=== PATIENT | male | born 1995 | race Caucasian/White ===

== ENCOUNTER 2025-07-22 11:56 | Emergency (ER) | payer SELFPAY ==
[2025-07-22 12:12] VITALS: BP 126/85; PULSE 71; RESP 16; TEMP 36.9; O2SAT 97
--- NOTE | 2025-07-22 12:13 | ED_ITS ---
HPI - Abdominal Pain General Chief Complaint: Abdominal Pain Stated Complaint: Right Side Pain Time Seen by Provider: 07/22/25 12:20 Source: patient Mode of arrival: ambulatory Limitations: no limitations History of Present Illness HPI narrative: Jack is a 30-year-old male patient presenting to the clinic today with complaints of right lower quadrant abdominal pain x1 day. He reports his symptoms started last night. Rates the pain a 4-5/10. Thought he may be constipated. Took a stool softener. Had a bowel movement this morning but this did not change the pain. Blood in his stool. No history of constipation in the past. No nausea or vomiting associated. Denies any fevers, chills, body aches. Related Data Home Medications ?Medication ?Instructions ?Recorded ?Confirmed ?Last Taken ?Type paroxetine HCl 20 mg tablet mg PO 07/22/25 Unknown Hi story Allergies Allergy/AdvReac Type Severity Reaction Status Date / Time No Known Allergies Allergy Verified 07/22/25 12:13 Review of Systems Review of Systems: Pertinent positives per HPI. Patient denies any fever, chills, rash, headache, visual changes, dizziness, cough, runny nose, sore throat, shortness of breath, chest pain, palpitations, nausea, vomiting, diarrhea, constipation, or any urinary issues. [facility] Family History Family History (Updated 11/13/18 @ 13:41 by DOCTOR UNKNOWN) Mother Family history of mental disorder Social History Social History Smoking status: Never smoker Alcohol intake: current Comments At the time of my signature, I reviewed and agree with the nursing past medical, surgical, social, and family history. There is no relevant family history pertinent to the patient complaint. Exam Narrative: General: Well-developed, well nourished, in no apparent distress. Head: Normocephalic, atraumatic. Cardio: Regular rate and rhythm, s1 and s2 normal, no murmur appreciated. Resp: Clear to auscultation bilaterally, no rhonchi, rales, wheezing or rubs. Abdomen: Soft, pliable, bowel sounds present in all quadrants right lower quadrant tender to palpation, no organomegly, no CVAT tenderness. Course Course Emergency Course: Portions of this record may have been created with voice recognition software. Level of Care: Express Care Visit Vital Signs Vital signs: Vital Signs Temperature 36.9 C 07/22/25 12:12 Pulse Rate 71 07/22/25 12:12 Respiratory Rate 16 07/22/25 12:12 Blood Pressure 126/85 07/22/25 12:12 Pulse Oximetry 97 07/22/25 12:12 Temperature 36.9 C 07/22/25 12:12 Pulse Rate 71 07/22/25 12:12 Respiratory Rate 16 07/22/25 12:12 Blood Pressure 126/85 07/22/25 12:12 Pulse Oximetry 97 07/22/25 12:12 Vital signs reviewed Transfer Transfered to: [place] Transportation: Other (Private car) Transfer rationale: RLQ abdomen pain R/O appy Accepting physician: Rowdy Transfer comments: Private car MDM - Abdominal Pain MDM Narrative Medical decision making narrative: At the time of visit patient is resting comfortably on the exam table. Patient appears to be nontoxic. complaints of right lower quadrant abdominal pain x1 day. He reports his symptoms started last night. Rates the pain a 4-5/10. Thought he may be constipated. Took a stool softener. Had a bowel movement this morning but this did not change the pain. Blood in his stool. No history of constipation in the past. No nausea or vomiting associated. Denies any fevers, chills, body aches. On exam patient has right lower quadrant abdominal tenderness, bowel sounds present all 4 quadrants, soft pliable abdomen, nondistended, no CVAT tenderness, no organomegaly. Plan: Patient is having right lower quadrant abdominal pain. Tenderness to palpation over the right lower quadrant-recommend sending to the ER for further evaluation to rule out appendicitis. Patient agrees to transfer. Patient would like to go to [place] emergency room. Contacted Claire-physician's assistant statistician at [place] [facility] and she accepts patient for transfer. Differential Diagnosis Differential diagnosis: Likely abdominal pain, acute appendicitis, constipation, small bowel obstruction and other (Cholecystitis) Discharge Plan Discharge Clinical Impression: Abdominal pain, acute, right lower quadrant Patient Disposition: Acute Care Hospital Condition: Stable Patient Language: Luxembourgish Prescriptions: No Action paroxetine HCl 20 mg tablet PO Follow-up/Referrals: PHYSICIAN,PLATE COLORER [Primary Care Provider, Internal Medicine] Time of Disposition: 12:25 Quality NIHSS Nursing Documentation ED NIHSS nursing documentation: reviewed/agree
== END 2025-07-22 12:30 | disposition short-term general hospital (02) ==
PROVIDERS: Emergency Provider Nurse Practitioner Family
DX: R10.31 Right lower quadrant pain (principal)
CPT/HCPCS: 99212; G0463

== ENCOUNTER 2025-07-22 13:04 | Emergency (ER) | payer OTHER, SELFPAY ==
--- NOTE | ~2025-07-22 | CT_ITS ---
EXAMINATION: CT abdomen pelvis w con DATE: 07/22/2025 14:45 INDICATION: Right lower quadrant pain TECHNIQUE: Computed tomography (CT) of the abdomen and pelvis was performed with 100 cc Omnipaque 350 intravenous contrast. The dose-length product was 630.07 mGy-cm. Automated exposure control and iterative reconstruction technique were employed. COMPARISON: None. FINDINGS: Lung bases unremarkable. Heart size normal. No significant pleural or pericardial effusion. There is a distal right ureteral stone measuring approximately 4 mm with moderate hydronephrosis. Fatty infiltration of the liver. Gallbladder is distended. Spleen, pancreas, adrenal glands and left ki dney are unremarkable. There is asymmetric right nephrogram which appears delayed, consistent with obstruction. Nonobstructive bowel gas pattern. Normal appendix. No significant vascular abnormality. No lymphadenopathy. No acute osseous abnormality. Small bone island left ilium. IMPRESSION: 1. Obstructing distal right ureteral stone near the UVJ measuring 4 mm with moderate hydronephrosis. Reviewed, dictated and finalized at location [facility]. [facility] IMPRESSION: 1. Obstructing distal right ureteral stone near the UVJ measuring 4 mm with mod erate hydronephrosis.
[2025-07-22 13:10] VITALS: BP 112/71; PULSE 67; RESP 20; TEMP 37.2; O2SAT 100
[2025-07-22 14:42] LABS: Hematocrit 38.9 % (42.0-52.0); Hemoglobin 13.4 g/dL (14.0-18.0); Immature Granulocyte Percent A 0.3 % (0-0.5); Lymphocytes Absolute Auto 0.54 K/mm3 (0.9-3.2); Mean Corpuscular HGB Conc 34.4 g/dl (32-36); Mean Corpuscular Hemoglobin 31.1 pg (26-34); Mean Corpuscular Volume 90.3 fl (80-100); Nucleated Red Blood Cells Absolute Auto 0.000 K/mm3 (0.0-0.012); Nucleated Red Blood Cells Perc 0.0 % (0.0-0.2); Platelet Count Result 250 k/mm3 (150-375); Red Blood Count 4.31 M/mm3 (4.6-6.20); White Blood Count 10.8 K/mm3 (4.5-10.0)
--- NOTE | 2025-07-22 15:27 | ED.ABDPAIN ---
HPI - Abdominal Pain General Chief Complaint: Abdominal Pain <MARTÍN Lombardi Last Filed: 07/22/25 15:37> Stated Complaint: RLQ pain-R/O appendicitis <MARTÍN Lombardi Last Filed: 07/22/25 15:37> Time Seen by Provider: 07/22/25 15:27 <MARTÍN Lombardi Last Filed: 07/22/25 15:37> Focused HPI: Started feeling lower right quadrant abdominal pain last night. Pain continued to today and describes it as dull starting in lower right flank radiating into lower right quadrant. Denies f/chills. GENERAL: Well-appearing, well-nourished, and in no acute distress. HEAD: Normocephalic, atraumatic. CHEST: Clear to auscultation. ?No respiratory distress. HEART: Regular rate and rhythm. ABDOMINAL: Pain not reproducing with palpation. NEURO: ?Alert and oriented x3. Patient screened in triage and initial orders placed.? ?Additional care and disposition to be based upon?diagnostic testing and treatment. <MARTÍN Lombardi Last Filed: 07/22/25 15:37> Focused HPI: Started feeling lower right quadrant abdominal pain last night. Pain continued to today and describes it as dull starting in lower right flank radiating into lower right quadrant. Denies f/chills. GENERAL: Well-appearing, well-nourished, and in no acute distress. HEAD: Normocephalic, atraumatic. CHEST: Clear to auscultation. ?No respiratory distress. HEART: Regular rate and rhythm. ABDOMINAL: Pain not reproducing with palpation. NEURO: ?Alert and oriented x3. Patient screened in triage and initial orders placed.? ?Additional care and disposition to be based upon?diagnostic testing and treatment. <Claire Bell PA-C - Last Filed: 07/22/25 17:20> Source: patient <ROBERTO Garcia Last Filed: 07/22/25 17:20> Mode of arrival: ambulatory <ROBERTO Garcia Last Filed: 07/22/25 17:20> Limitations: no limitations <Claire Bell PA-C - Last Filed: 07/22/25 17:20> History of Present Illness HPI narrative: Agree with above HPI. Did report nausea and vomiting earlier today. Denies dysuria, hematuria. Denies history of similar pain. Was seen at urgent care this morning and sent here for further evaluation. <Claire Bell PA-C - Last Filed: 07/22/25 17:20> Related Data Home Medications: Home Medications ?Medication ?Instructions ?Recorded ?Confirmed ?Last Taken ?Type paroxetine HCl 20 mg tablet mg PO 07/22/25 Unknown History <MARTÍN Lombardi Last Filed: 07/22/25 15:37> Allergies/Adverse Reactions: Allergies Allergy/AdvReac Type Severity Reaction Status Date / Time No Known Allergies Allergy Verified 07/22/25 12:13 <MARTÍN Lombardi Last Filed: 07/22/25 15:37> Review of Systems Review of Systems: All systems reviewed & are unremarkable except as noted in HPI. <Claire Bell PA-C - Last Filed: 07/22/25 17:20> All systems reviewed & are unremarkable except as noted in HPI and below <Claire Bell PA-C - Last Filed: 07/22/25 17:20> [facility] [place] Family History Family History: Family History Mother Family history of mental disorder <MARTÍN Lombardi Last Filed: 07/22/25 15:37> Social History Social History: Social History Alcohol intake: current <MARTÍN Lombardi Filed: 07/22/25 15:37> Exam Narrative: GENERAL: Well appearing, well-nourished, non-toxic, in no acute distress. HEAD: Normocephalic, atraumatic. RESPIRATORY: Airway patent, respirations nonlabored. Clear to auscultation bilaterally, no rales, rhonchi, wheezing. CARDIOVASCULAR: Regular rate and rhythm without murmurs, rubs, or gallops. ABDOMINAL: Soft, mild tenderness palpation right mid to lower /lateral abdomen, nondistended. Normoactive BS. No significant CVA tenderness MUSCULOSKELETAL: Moves all extremities. No gross deformities. SKIN: Warm, dry, normal color. NEURO: A&O X3. Speech clear. Steady gait. No ataxic movements. PSYCHIATRIC: Appropriate mood and affect. Normal interaction. <ROBERTO Garcia Last Filed: 07/22/25 17:20> Course Vital Signs Vital signs: Vital Signs Temperature 98.9 F 07/22/25 13:10 Pulse Rate 67 07/22/25 13:10 Respiratory Rate 20 07/22/25 13:10 Blood Pressure 112/71 07/22/25 13:10 Pulse Oximetry 100 07/22/25 13:10 Oxygen Delivery Room Air 07/22/25 13:10 Temperature 98.9 F 07/22/25 13:10 Pulse Rate 65 07/22/25 15:54 Respiratory Rate 16 07/22/25 15:54 Blood Pressure 121/107 H 07/22/25 15:54 Pulse Oximetry 99 07/22/25 15:54 Oxygen Delivery Room Air 07/22/25 15:54 <MARTÍN Lombardi Last Filed: 07/22/25 15:37> Vital Signs Temperature 98.9 F 07/22/25 13:10 Pulse Rate 67 07/22/25 13:10 Respiratory Rate 20 07/22/25 13:10 Blood Pressure 112/71 07/22/25 13:10 Pulse Oximetry 100 07/22/25 13:10 Oxygen Delivery Room Air 07/22/25 13:10 Temperature 98.9 F 07/22/25 13:10 Pulse Rate 65 07/22/25 15:54 Respiratory Rate 16 07/22/25 15:54 Blood Pressure 121/107 H 07/22/25 15:54 Pulse Oximetry 99 07/22/25 15:54 Oxygen Delivery Room Air 07/22/25 15:54 <ROBERTO Garcia Last Filed: 07/22/25 17:20> MDM - Abdominal Pain MDM Narrative Medical decision making narrative: Patient presented to ED with right-sided lower abdominal pain that began last night, worsening today. Associated with nausea/vomiting. Sent from urgent care. Vital signs stable upon arrival. Patient in no acute distress upon my evaluation. Given pain control. CBC with white blood cell count of 10.8. Stable H&H. CMP unremarkable. Kidney function is stable. Normal LFTs. UA w/ elevated SG, evidence of blood, no signs of infection. CT of the abdomen/pelvis was obtained and showing 4 mm distal right ureteral stone. Moderate hydronephrosis. Discussed lab and imaging findings w/ patient. He denies previous hx of kidney stone. Does endorse frequent energy drink consumption. Patient's pain is controlled at this time. He is stable. Safe for discharge home. Discussed continued management of kidney stone, sent with urine strainer, will refer to Urology for further eval as needed. Given strict return precautions. He agrees with plan. Discharged in stable condition. <Claire Bell PA-C - Last Filed: 07/22/25 17:20> Medical Records Attestation: I reviewed the patient's medical records. <Claire Bell PA-C - Last Filed: 07/22/25 17:20> Lab Data Attestation: I reviewed the patient's lab results. <Claire Bell PA-C - Last Filed: 07/22/25 17:20> Result diagrams: 07/22/25 14:35 07/22/25 16:06 <MARTÍN Lmobardi Last Filed: 07/22/25 15:37> Labs: Lab Results 07/22/25 07/22/25 Range/Units 14:35 16:06 WBC 10.8 H (4.5-10.0) K/mm3 RBC 4.31 L (4.6-6.20) M/mm3 Hgb 13.4 L (14.0-18.0) g/dL Hct 38.9 L (42.0-52.0) % MCV 90.3 (80-100) fl MCH 31.1 (26-34) pg MCHC 34.4 (32-36) g/dl RDW 11.8 (11.5-14.5) % Plt Count 250 (150-375) k/mm3 MPV 9.1 (7.4-10.4) fl Immature Gran % (Auto) 0.3 (0-0.5) % Neut % (Auto) 91.1 H (45.5-73.1) % Lymph % (Auto) 5.0 L (18.3-44.2) % [place] % (Auto) 3.2 (2.6-8.5) % Eos % (Auto) 0.2 (0-4.4) % Baso % (Auto) 0.2 (0.2-1.2) % Lymph # (Auto) 0.54 L (0.9-3.2) K/mm3 [place] # (Auto) 0.4 (0.1-0.6) K/mm3 Eos # (Auto) 0.0 (0-0.3) K/mm3 Baso # (Auto) 0.0 (0.0-0.1) K/mm3 Abs Immat Gran (auto) 0.03 (0.00-0.031) K/mm3 Absolute Neuts (auto) 9.8 H (1.3-6.7) K/mm3 Absolute Nucleated RBC 0.000 (0.0-0.012) K/mm3 Nucleated RBC % 0.0 (0.0-0.2) % Sodium 138 (137-145) mmol/L Potassium 4.2 (3.4-5.0) mmol/L Chloride 101 (98-107) mmol/L Carbon Dioxide 28 (22-30) mmol/L Anion Gap 9 (4-12) mmol/L BUN 10 (9-20) mg/dL Creatinine 1.15 (0.7-1.3) mg/dL Estim Creat Clear Calc 88 ml/min Estimated GFR > 60 (59 - ) Glucose 95 (65-110) mg/dL Calcium 9.0 (8.4-10.2) mg/dL Total Bilirubin 0.4 (0.2-1.3) mg/dL AST 23 (17-59) U/L ALT 20 (6-50) U/L Alkaline Phosphatase 71 (38-126) U/L Total Protein 6.7 (6.3-8.2) g/dL Albumin 4.5 (3.5-5.1) g/dL Urine Color Yellow (Yellow) Urine Appearance Clear (Clear) Urine pH 8.5 (5.0-9.0) Ur Specific [place] > 1.045 H (1.001-1.035) Urine Protein Negative (Negative) mg/dL Urine Glucose (UA) Negative (Negative) mg/dL Urine Ketones Negative (Negative) mg/dL Ur Blood (Man) 1+ H (Negative) Urine Nitrate Negative (Negative) Urine Bilirubin Negative (Negative) Urine Urobilinogen 0.2 (<2.0) mg/dL Leukocyte Esterase Rfl Negative (Negative) JACQUELINE/UL Urine RBC 21-50 H (0-2) /hpf Urine WBC 0-5 (0-3) /hpf Ur Squamous Epith Cells None seen (Few) /hpf Urine Bacteria None seen /hpf Urine Casts 0-2 <MARTÍN Lombardi - Last Filed: 07/22/25 15:37> Lab Results 07/22/25 07/22/25 Range/Units 14:35 16:06 WBC 10.8 H (4.5-10.0) K/mm3 RBC 4.31 L (4.6-6.20) M/mm3 Hgb 13.4 L (14.0-18.0) g/dL Hct 38.9 L (42.0-52.0) % MCV 90.3 (80-100) fl MCH 31.1 (26-34) pg MCHC 34.4 (32-36) g/dl RDW 11.8 (11.5-14.5) % Plt Count 250 (150-375) k/mm3 MPV 9.1 (7.4-10.4) fl Immature Gran % (Auto) 0.3 (0-0.5) % Neut % (Auto) 91.1 H (45.5-73.1) % Lymph % (Auto) 5.0 L (18.3-44.2) % [place] % (Auto) 3.2 (2.6-8.5) % Eos % (Auto) 0.2 (0-4.4) % Baso % (Auto) 0.2 (0.2-1.2) % Lymph # (Auto) 0.54 L (0.9-3.2) K/mm3 [place] # (Auto) 0.4 (0.1-0.6) K/mm3 Eos # (Auto) 0.0 (0-0.3) K/mm3 Baso # (Auto) 0.0 (0.0-0.1) K/mm3 Abs Immat Gran (auto) 0.03 (0.00-0.031) K/mm3 Absolute Neuts (auto) 9.8 H (1.3-6.7) K/mm3 Absolute Nucleated RBC 0.000 (0.0-0.012) K/mm3 Nucleated RBC % 0.0 (0.0-0.2) % Sodium 138 (137-145) mmol/L Potassium 4.2 (3.4-5.0) mmol/L Chloride 101 (98-107) mmol/L Carbon Dioxide 28 (22-30) mmol/L Anion Gap 9 (4-12) mmol/L BUN 10 (9-20) mg/dL Creatinine 1.15 (0.7-1.3) mg/dL Estim Creat Clear Calc 88 ml/min Estimated GFR > 60 (59 - ) Glucose 95 (65-110) mg/dL Calcium 9.0 (8.4-10.2) mg/dL Total Bilirubin 0.4 (0.2-1.3) mg/dL AST 23 (17-59) U/L ALT 20 (6-50) U/L Alkaline Phosphatase 71 (38-126) U/L Total Protein 6.7 (6.3-8.2) g/dL Albumin 4.5 (3.5-5.1) g/dL Urine Color Yellow (Yellow) Urine Appearance Clear (Clear) Urine pH 8.5 (5.0-9.0) Ur Specific [place] > 1.045 H (1.001-1.035) Urine Protein Negative (Negative) mg/dL Urine Glucose (UA) Negative (Negative) mg/dL Urine Ketones Negative (Negative) mg/dL Ur Blood (Man) 1+ H (Negative) Urine Nitrate Negative (Negative) Urine Bilirubin Negative (Negative) Urine Urobilinogen 0.2 (<2.0) mg/dL Leukocyte Esterase Rfl Negative (Negative) JACQUELINE/UL Urine RBC 21-50 H (0-2) /hpf Urine WBC 0-5 (0-3) /hpf Ur Squamous Epith Cells None seen (Few) /hpf Urine Bacteria None seen /hpf Urine Casts 0-2 <Claire Bell PA-C - Last Filed: 07/22/25 17:20> Imaging Data Attestation: I personally reviewed and interpreted this imaging study as follows: <ROBERTO Garcia Last Filed: 07/22/25 17:20> Radiologist's impression: ITS Impressions Abdomen/Pelvis CT 07/22/25 15:00 IMPRESSION: 1. Obstructing distal right ureteral stone near the UVJ measuring 4 mm with moderate hydronephrosis. <MARTÍN Lombardi Last Filed: 07/22/25 15:37> ITS Impressions Abdomen/Pelvis CT 07/22/25 15:00 IMPRESSION: 1. Obstructing distal right ureteral stone near the UVJ measuring 4 mm with moderate hydronephrosis. <ROBERTO Garcia Last Filed: 07/22/25 17:20> Discharge Plan Discharge Clinical Impression: Calculus of distal right ureter <MARTÍN Lombardi Last Filed: 07/22/25 15:37> Patient Disposition: Home <MARTÍN Lombardi Last Filed: 07/22/25 15:37> Condition: Stable <MARTÍN Lombardi Last Filed: 07/22/25 15:37> Instructions: Antibiotic Form, Kidney Stones (ED), How to Strain Your Urine (ED) <MARTÍN Lombardi Last Filed: 07/22/25 15:37> Additional Instructions: Take Flomax daily as prescribed. Continue Tylenol and Ibuprofen as needed for pain. [place] as needed for more severe pain. Zofran for nausea. Stay well hydrated. Strain urine to collect stone. Follow-up with urology for further evaluation if needed. Return to the ED if you experience worsening or severe pain, unable to keep down food/drink, fevers, uncontrollable nausea/vomiting, unable to urinate, or any other symptoms of concern. <MARTÍN Lombardi Last Filed: 07/22/25 15:37> Patient Language: Khmer <MARTÍN Lombardi Last Filed: 07/22/25 15:37> Prescriptions: New hydrocodone-acetaminophen 5-325 mg tablet 1 tablet PO Q6H PRN (Reason: pain) Qty: 15 0RF tamsulosin [Flomax] 0.4 mg capsule 0.4 mg PO DAILY Qty: 7 0RF ondansetron 4 mg tablet,disintegrating 4 mg PO Q8H PRN (Reason: nausea and vomiting) Qty: 15 0RF No Action paroxetine HCl 20 mg tablet PO <MARTÍN Lombardi - Last Filed: 07/22/25 15:37> Follow-up/Referrals: Julio Huang MD [Physician, Urology] Referral Note: UROLOGY PHYSICIAN,PATCH SETTER [Primary Care Provider, Internal Medicine] Maury Carbajal MD [Physician, Family Practice] Referral Note: PRIMARY CARE <MARTÍN Lombardi - Last Filed: 07/22/25 15:37> Time of Disposition: 16:51 <MARTÍN Lombardi - Last Filed: 07/22/25 15:37> 16:51 <Claire Bell PA-C - Last Filed: 07/22/25 17:20>
[2025-07-22 15:54] VITALS: BP 121/107; PULSE 65; RESP 16; O2SAT 99
[2025-07-22 16:21] LABS: Add Urine Microscopic? YES; Appearance Urine Clear (Clear); Glucose Urine UA Negative (Negative); Leukocyte Esterase Ur Negative LEU/UL (Negative); Nitrate Urine Negative (Negative); Non Pathogenic Casts 0-2; Specific Grav Ur > 1.045 (1.001-1.035)
[2025-07-22 16:27] LABS: Alanine Aminotransferase 20 U/L (6-50); Albumin Level 4.5 g/dL (3.5-5.1); Alkaline Phosphatase 71 U/L (38-126); Anion Gap 9 mmol/L (4-12); Aspartate Amino Transferase 23 U/L (17-59); Bilirubin,Total 0.4 mg/dL (0.2-1.3); Blood Urea Nitrogen 10 mg/dL (9-20); Calcium 9.0 mg/dL (8.4-10.2); Carbon Dioxide 28 mmol/L (22-30); Chloride 101 mmol/L (98-107); Estimated CRCL calculation 88 ml/min; Estimated Glomerular Filt Rate > 60; Glucose 95 mg/dL (65-110); Potassium 4.2 mmol/L (3.4-5.0); Sodium 138 mmol/L (137-145); Total Protein 6.7 g/dL (6.3-8.2)
[2025-07-22] MEDS: KETOROLAC 30 MG/ML VIAL (*BKC) IV PUSH (16:47)
[2025-07-22] MEDS: TAMSULOSIN HCL 0.4 MG CAPSULE PO (16:47)
[2025-07-22] MEDS: HYDROcodone/acetaminophen (*CRX) 5-325 MG TABLET 1 TAB PO (16:47)
--- NOTE | 2025-07-22 17:15 | PC.NURSE ---
Pt departed prior to recieving urine strainer.
[2025-07-22 17:18] VITALS: BP 119/86; PULSE 73; RESP 16; O2SAT 100
== END 2025-07-22 17:15 | disposition home or self-care (01) ==
PROVIDERS: Emergency Medicine; Emergency Provider Physician Assistant
DX: N13.2 Hydronephrosis with renal and ureteral calculous obstruction (principal)
CPT/HCPCS: 36415; 74177; 80053; 81001; 85025; 96374; 99284; A9270; J1885; Q9967